=== PATIENT | female | born 1955 | race Asian ===

== ENCOUNTER → 2019-08-09 | Outpatient (CLI) | payer OTHER | END | disposition home or self-care (01) | LOC: RAH 07:22 | PROVIDERS: ATTEND Obstetrics & Gynecology | DX: Z12.31 Encounter for screening mammogram for malignant neoplasm of breast (principal) | CPT/HCPCS: 77067 ==

== ENCOUNTER → 2020-08-10 | Outpatient (CLI) | payer OTHER | END | disposition home or self-care (01) | LOC: RAH 09:20 | PROVIDERS: ATTEND Family Medicine | DX: Z12.31 Encounter for screening mammogram for malignant neoplasm of breast (principal) | CPT/HCPCS: 77063; 77067 ==

== ENCOUNTER 2021-04-23 18:31 | Emergency (ER) | payer OTHER ==
[~2021-04-23] VITALS: Ht 157.5 cm; Wt 59.0 kg
[2021-04-23 19:44] VITALS: BP 135/71
[2021-04-23] MEDS ORDERED: TETANUS/DIPHTHERIA TOXOID [ADULT] 0.5 ML VIAL IM ONE (20:00)
[2021-04-23] MEDS ORDERED: GENTAMICIN SULFATE 0.3% 5ML DROPS OD ONE (20:00)
== END 2021-04-23 20:29 | disposition home or self-care (01) ==
LOC: EDH 18:31
DX: H11.31 Conjunctival hemorrhage, right eye (principal); I10 Essential (primary) hypertension; E03.9 Hypothyroidism, unspecified; X58.XXXA Exposure to other specified factors, initial encounter; Y93.89 Activity, other specified; Y92.89 Other specified places as the place of occurrence of the external cause; Y99.8 Other external cause status
CPT/HCPCS: 90471; 90714

== ENCOUNTER 2021-06-22 05:48 | Day surgery (SDC) | payer OTHER ==
[~2021-06-22] VITALS: Ht 157.5 cm; Wt 59.9 kg
[~2021-06-22 05:48] MED LIST: CARB10DR2 OP; LEVO25CA4 PO; LOSA25TA41 PO; MV-M1TAB20 PO; RISE35TA12 PO; ROSU10TA28 PO
[2021-06-22] MEDS ORDERED: 0.9%NACL 1000ML 1,000 ML IV ONE (06:15)
[2021-06-22 06:43] VITALS: BP 135/70
[2021-06-22] MEDS ORDERED: PROPOFOL 10 MG/ML 20ML VIAL IV ONE (07:11)
[2021-06-22] MEDS ORDERED: LIDOCAINE HCL 1% 20 ML VIAL ONE (07:11)
[2021-06-22] MEDS ORDERED: GLYCOPYRROLATE 1 MG/5 ML SYRINGE ONE (07:22)
[2021-06-22 07:30] VITALS: BP 105/55
[2021-06-22 07:35] VITALS: BP 115/52
[2021-06-22 07:40] VITALS: BP 130/49
[2021-06-22 07:45] VITALS: BP 140/61
[2021-06-22 08:00] VITALS: BP 122/58
== END 2021-06-22 08:10 | disposition home or self-care (01) ==
LOC: ENDO 05:48 → DAH 05:48 → ENDO 08:10
PROVIDERS: ATTEND Internal Medicine
DX: Z12.11 Encounter for screening for malignant neoplasm of colon (principal); Z20.822 Contact with and (suspected) exposure to COVID-19; K63.5 Polyp of colon; K64.8 Other hemorrhoids; I10 Essential (primary) hypertension; E78.5 Hyperlipidemia, unspecified; E03.9 Hypothyroidism, unspecified; Z98.891 History of uterine scar from previous surgery; Z79.899 Other long term (current) drug therapy
CPT/HCPCS: 45380; 87635; 93005; A4215 ×2; A4221; A4222; A4223; A4606; A4657; A4663; C9803; J2704; J3490; J7030

== ENCOUNTER 2021-07-20 03:03 | Emergency (ER) | payer OTHER ==
[~2021-07-20] VITALS: Ht 157.5 cm; Wt 59.9 kg
[2021-07-20 03:31] VITALS: BP 151/70
[2021-07-20] MEDS ORDERED: GENTOS OD (03:35)
[2021-07-20] MEDS ORDERED: GENTAMICIN SULFATE 0.3% 5ML DROPS ONE (03:44)
[2021-07-20] MEDS ORDERED: GENTAMICIN SULFATE 0.3% 5ML DROPS OU ONE (04:00)
== END 2021-07-20 03:49 | disposition home or self-care (01) ==
LOC: EDH 03:03
DX: H11.32 Conjunctival hemorrhage, left eye (principal); I10 Essential (primary) hypertension; Z79.899 Other long term (current) drug therapy
CPT/HCPCS: 99282

== ENCOUNTER → 2023-04-05 | Outpatient (CLI) | payer MEDICARE ==
[~2023-04-05] MED LIST changes: +GENTOS OD
== END | disposition home or self-care (01) ==
LOC: RAH 10:00
PROVIDERS: ATTEND Family Medicine
DX: Z12.31 Encounter for screening mammogram for malignant neoplasm of breast (principal)
CPT/HCPCS: 77067

== ENCOUNTER → 2024-07-16 | Outpatient (CLI) | payer MEDICARE ==
[~2024-07-16] MED LIST changes: -ROSU10TA28 PO; +ROSU10TA72 PO
== END | disposition home or self-care (01) ==
LOC: RAH 10:11
PROVIDERS: ATTEND Obstetrics & Gynecology
DX: Z12.31 Encounter for screening mammogram for malignant neoplasm of breast (principal); R92.343 Mammographic extreme density, bilateral breasts
CPT/HCPCS: 77067

== ENCOUNTER 2024-12-20 08:00 | Emergency (ER) | payer MEDICARE ==
[~2024-12-20] VITALS: Ht 157.5 cm; Wt 59.4 kg
[2024-12-20 08:12] VITALS: BP 171/78; PULSE 84; RESP 18; TEMP 97.5; O2SAT 95
[2024-12-20] MEDS: TETRACAINE HCL 0.5% 4 ML OPHTH SOLN OP SCH (08:33)
[2024-12-20] MEDS: FLUORESCEIN SODIUM 1 STRIP STRIP OP SCH (08:33)
[2024-12-20] MEDS ORDERED: POLYOS OP (08:42)
--- NOTE | 2024-12-20 08:43 | ERN ---
General Chief Complaint: Eye Problems Stated Complaint: EYE PAIN Time Seen by MD: 08:02 History of Present Illness Initial Comments 69-year-old female who presents for possible foreign body in the right eye. About no 48 hours ago she was in her garden, she felt a leaf neck her right eye. Since then she has had some irritation. No vision changes. No headaches. No other symptoms. She does not wear contact lenses. Allergies: Coded Allergies: No Known Allergies (Unverified Allergy, Unknown, 04/23/21) grapefruit (Unverified Allergy, Unknown, 07/20/21) Home Meds Active Scripts Gentamicin Sulfate (Genoptic/Garamycin 0.3% Ophth Soln) 20 Drop/Ml Opsol, 20 DROP OD BIDPC, #1 DROP Prov:MANUELA FRAUSTO MD 07/20/21 Reported Medications Risedronate Sodium (Risedronate Sodium) 35 Mg Tablet, 35 MG PO QWEEK, TAB 06/21/21 Levothyroxine Sodium (Levothyroxine) 25 Mcg Capsule, 25 MCG PO DAILY, CAP 06/21/21 Rosuvastatin Calcium (Rosuvastatin Calcium) 10 Mg Tablet, 10 MG PO DAILY, TAB 06/21/21 Losartan Potassium (Losartan Potassium) 25 Mg Tablet, 25 MG PO DAILY, TAB 06/21/21 Mv-Mn/Iron/FA/Herbal Cmplx#190 (Vitamin D3 Complete Caplet) 1 Each Tablet, 1 EACH PO DAILY, TAB 06/21/21 Carboxymethylcellulos/Glycerin (Refresh Optive Gel Eye Drops) 10 Ml Drops.gel, 10 ML OP DAILY, DROP 06/21/21 Past Medical History Past Medical History: High Cholesterol, Hypertension, Hypothyroid Past Surgical History: Family History Family History: Negative Social History Social History: Negative Female( History) History: Not Applicable ROS Dictation CONSTITUTIONAL: No chills, no fever, no weakness, no diaphoresis, no malaise. HEAD/FACE: No signs of trauma. EENT: Right eye pain RESPIRATORY: No cough, no orthopnea, no SOB, no stridor, no wheezing. CARDIOVASCULAR: No chest pain, no edema, no palpitations, no syncope. GASTROINTESTINAL/ABDOMINAL: No abdominal pain, no constipation, no diarrhea, no nausea, no vomiting. GENITOURINARY: No abnormal discharge, no dysuria, no frequent urination, no hematuria. No complaints of pain in the genitals. MUSCULOSKELETAL: No back pain, no gout, no joint pain, no joint swelling, no muscle pain, no muscle stiffness, no neck pain. INTEGUMENTARY: No change in color, no change in hair/nails, no dryness, no lesion, no lumps, no rash. NEUROLOGICAL/PSYCH: No anxiety, not depressed, no emotional problem, no headache, no numbness, no pre-existing deficit, no history of seizures, no tremors, no weakness. HEMATOLOGIC/LYMPHATIC: Not anemic, no history of blood clots, no apparent bleeding, no bruising, glands not swollen. All Systems Negative, Except as Noted. Physical Exam Physical Exam Dictation VITAL SIGNS: Reviewed. GENERAL APPEARANCE: Alert, oriented x3, no acute distress HEAD AND FACE: Non-traumatic. EYES: PERRL, pink conjunctivas, eyelid no trauma, anterior chamber clear. EARS: Pinnas intact and no signs of trauma or erythema. Ear canals clear and no discharge. TMs no erythema. NOSE: No discharge, no bleeding. OROPHARYNX: Mouth normal, teeth no caries, tongue pink. Pharynx clear, no erythema. Tonsils no exudates, no abscesses noted. Mucous membrane moist. NECK: Supple, non-tender, no thyromegaly, no masses, no JVD, no bruits. BREAST: Deferred. CHEST: No tenderness, no crepitus, no paradoxical movement, no retractions. LUNGS: Clear, well-ventilated, symmetric, no rales, no wheezing, no rhonchi, no stridor, good breath sounds bilaterally. HEART: Regular rate, regular rhythm, no murmur, no gallops. VASCULAR: No peripheral edema. ABDOMEN: Soft, positive bowel sounds, nondistended, no guarding, nontender, no rebound, no masses no hepatomegaly, no splenomegaly, no Thomas's sign, no hernias. RECTAL: Deferred. GENITAL: Deferred. NEUROLOGICAL: Normal speech, gross motor function intact, gross sensory function intact. MUSCULOSKELETAL: Neck nontender, full range of motion, back nontender, full range of motion. EXTREMITIES: Nontender, full range of motion. SKIN: Color pink, dry, no turgor, no rash, no lacerations, no abrasions, no contusions. LYMPHATICS: Deferred. MDM CC: Right eye discomfort possible foreign body Historian: Patient Comorbidities: None Limitations by social determinants of health: None Differential diagnosis: Corneal abrasion, foreign body, other. Vital signs are stable Performed an eye exam. There is a very small 3 mm superficial corneal abrasion to the lateral side of the pupil. ALKA, EOMI, no signs of significant infection We will discharge with Polytrim, recommend ophthalmology follow up Patient agrees with the plan. ED Course Orders Procedure Category Date Status Time Tetracaine Hcl PHA 12/20/24 In Process (Pontocaine 0.5% 08:30 Fluorescein Sodium PHA 12/20/24 In Process (Sxtvo-Q-Vpywe At) 08:30 Current Medications Medications (Trade) Dose Ordered Sig/Roxy Route PRN Reason Start Time Stop Time Status Last Admin Dose Admin Fluorescein Sodium (Ggfqo-K-Cjapg At) 1 strip ONCE OP 12/20/24 08:30 01/19/25 08:29 12/20/24 08:33 Tetracaine HCl (Pontocaine 0.5% Ophth Soln) 1 OR 2 DROPS ONCE OP 12/20/24 08:30 01/19/25 08:29 12/20/24 08:33 Vital Signs Date Time Temp Pulse Resp B/P (MAP) Pulse Ox O2 Delivery O2 Flow Rate FiO2 12/20/24 08:12 97.5 84 18 171/78 95 Room Air* 0 21 12/20/24 08:01 97.5 84 18 171/78 95 Room Air DX & DISP Disposition: Discharge Departure Impression: Primary Impression: Right corneal abrasion Condition: Stable Scripts Polymyxin B Sulfate/Tmp (Polytrim Ophth Soln) 10,000 Unit-1 Mg/Ml Opsol 1 DROP OP TID for 7 Days, #10 ML 0 Refills Prov: SUSIE KASPER DO 12/20/24 Additional Instructions: You have a very small corneal abrasion, approximately 3 mm to the side of the pupil. There are no foreign bodies in the eye. I have prescribed antibiotic eye drops. Take as prescribed. Do not wear contact lenses with the eye drops. If you continue with symptoms after 48 hours or so, I recommend he follow up with an enrollment management director or eye doctor. You can take [id number] Tylenol or ibuprofen as needed for pain or discomfort. Please return to the emergency department as needed. Referrals: ANMOL PARDO MD (PCP) SUSIE KASPER DO Dec 20, 2024 08:43
== END 2024-12-20 08:52 | disposition home or self-care (01) ==
LOC: EDH 08:00
DX: S05.01XA Injury of conjunctiva and corneal abrasion without foreign body, right eye, initial encounter (principal); E03.9 Hypothyroidism, unspecified; E78.00 Pure hypercholesterolemia, unspecified; I10 Essential (primary) hypertension; Z79.890 Hormone replacement therapy; Z79.899 Other long term (current) drug therapy; X58.XXXA Exposure to other specified factors, initial encounter; Y93.89 Activity, other specified; Y92.89 Other specified places as the place of occurrence of the external cause; Y99.8 Other external cause status
CPT/HCPCS: 99283

== ENCOUNTER → 2025-07-17 | Outpatient (CLI) | payer MEDICARE ==
[~2025-07-17] MED LIST changes: -LEVO25CA4 PO; +LEVO25CA5 PO; +POLYOS OP
== END | disposition home or self-care (01) ==
LOC: RAH 13:07
PROVIDERS: ATTEND Obstetrics & Gynecology
DX: Z12.31 Encounter for screening mammogram for malignant neoplasm of breast (principal)
CPT/HCPCS: 77063; 77067